=== PATIENT | female | born 1970 | race Caucasian/White ===

== ENCOUNTER → 2018-02-14 | Day surgery (SDC) | payer OTHER ==
--- NOTE | 2018-02-11 14:26 | History & Physical Pre-Op ---
General Information and HPI History of Present Illness: Estuardo is a 47-year-old female with a complaint of enlarging and painful soft tissue mass left foot. The patient has undergone an extended course of conservative care, including shoe gear and activity modification, rest, immobilization and courses of NSAIDs. None of this is yielded her any significant relief. The patient presents today for preoperative surgical consultation. The patient was referred to our office from Abiodun Goldman DPM. Past History Surgical History Pertinent Surgical History: non-contributory Review of Systems Review of Systems: Unremarkable except for that noted in history of present illness Exam & Diagnostic Data Physical Exam: Lungs clear bilaterally. Heart sounds rate and rhythm regular. Lower extremity physical exam demonstrates intact pedal pulses bilaterally. Pulses dorsalis pedis and posterior tibial arteries are palpable bilaterally. Patient without any sensory motor deficits. Deep tendon reflexes grossly intact. Patient noted assuming pain with palpation to the freely mobile, and nonpulsatilesoft tissue mass left foot. Assessment/Plan Assessment/Plan: Painful and enlarging soft tissue mass left foot. A lengthy discussion reviewing both surgical and conservative options was held the patient at bedside and the patient elects to go forward surgery despite the risks. As Ranked By This Provider Problem List: 1. Neoplasm of unspecified behavior of bone, soft tissue, and skin Attending MD Review Statement Attending Statement Attending MD Statement: examined this patient
[~2018-02-14] VITALS: Ht 157.5 cm; Wt 53.1 kg
--- NOTE | 2018-02-14 09:36 | Operative Report ---
Operative/Inv Procedure Report Surgery Date: 02/14/18 Name of Procedure: 1 excision of soft tissue mass left foot 2 closure of open surgical wound with local random advancement flap Pre-Operative Diagnosis: 1 enlarging and painful soft tissue mass left foot Post-Operative Diagnosis: The same Estimated Blood Loss: scant Surgeon/Research Animal Attendant: Micah LIMA,Kaiden Goldman DPM Anesthesia: moderate sedation, block Operative/Procedure Note Note: After obtaining informed consent the patient was brought to the operating room and placed on the operating table in the supine position. The patient was then securely fastened to the operating table utilizing safety belt. After administration of IV sedation, 10 mL of 0.5% Marcaine plain was infiltrated about the patient's left ankle. Well-padded ankle tourniquet was placed about the patient's left lower extremity. 2 g of Ancef were delivered intravenously times one dose. The left foot and ankle within scrubbed, prepped and draped in usual aseptic manner. The left lower extremity was elevated to examine to limb, at which point the ankle tourniquet inflated 250 mmHg. A curvilinear incision was then made overlying the distal third ray. There is noted to extend approximately 5 cm. The dissection was then carried down to subtenons tissues. This was a venous lesion with congestion identified throughout a vascular soft tissue mass at the dorsal foot. The dissection then continued from distal a proximal at the deep margin. There is and distracted and cut proximally and the vessels were both ligated and cauterized. The specimen was sent for pathologic inspection. The open wound was then irrigated with copious amounts of normal sterile saline. The deep tissues were reapproximated with 4-0 Vicryl and the subtenons tissues reports a 4-0 Vicryl. The skin edges reapproximated 4-0 nylon. Incision was dressed with Xeroform, 4 x 4's, Kerlix and Seun wrap. The patient was noted to tolerate both procedure and anesthesia well and the patient was transported from the operating room to recovery with vital signs stable best assess intact all digits left foot.
== END ==
LOC: STS 02:01
DX: D18.09 Hemangioma of other sites (principal); M79.672 Pain in left foot
CPT/HCPCS: J0690; J2001; J2250; J3490